=== PATIENT | male | born 1965 | race Caucasian/White ===

== ENCOUNTER 2023-12-17 12:26 | Emergency (ER) | payer OTHER ==
[2023-12-17 13:10] LABS: BASOPHILS ABSOLUTE AUTO 0.1 K/mm3 (0.0-0.2); BASOPHILS PERCENT AUTO 0.6 % (0.0-1.0); EOSINOPHILS ABSOLUTE AUTO 0.1 K/mm3 (0.0-0.4); EOSINOPHILS PERCENT AUTO 1.7 % (0.0-6.0); HEMATOCRIT 46.8 % (42.0-52.0); HEMOGLOBIN 16.1 gm/dl (14.0-18.0); IMMATURE GRAN ABSOLUTE AUTO 0.04 K/mm3 (0.00-0.05); IMMATURE GRAN PERCENT AUTO 0.5 % (0.0-0.4); LYMPHOCYTES ABSOLUTE AUTO 1.8 K/mm3 (1.0-4.8); LYMPHOCYTES PERCENT AUTO 21.6 % (24.0-44.0); MEAN CORPUSCULAR HEMOGLOBIN 28.4 pg (28.0-32.0); MEAN CORPUSCULAR HGB CONC 34.4 g/dl (32.0-36.0); MEAN CORPUSCULAR VOLUME 82.7 fl (83.0-99.0); MEAN PLATELET VOLUME 10.4 fl (9.4-12.4); MONOCYTES ABSOLUTE AUTO 0.6 K/mm3 (0.0-0.8); MONOCYTES PERCENT AUTO 6.7 % (0.0-8.0); NEUTROPHILS ABSOLUTE AUTO 5.8 K/mm3 (1.8-7.7); NEUTROPHILS PERCENT AUTO 68.9 % (41.0-71.0); PLATELET COUNT,PLT 300 K/mm3 (150-400); RED BLOOD CELL COUNT 5.66 M/mm3 (4.52-5.90); WHITE BLOOD CELL COUNT,WBC 8.47 K/mm3 (3.9-11.3)
[2023-12-17] MEDS: Insulin Regular, Human 100 Units/ML 3 ML Vial IV ONE (13:24)
[2023-12-17] MEDS: Sodium Chloride 0.9% 1,000 ML IV ONE (13:24)
[2023-12-17] MEDS: hydrALAZINE 20 MG/ML SDV IVPUSH ONE ×2 (13:25→16:25)
[2023-12-17 13:41] LABS: PROTHROMBIN TIME 9.8 SECONDS (9.7-12.0)
[2023-12-17 13:45] LABS: A/G RATIO 0.7 (1-2); ALBUMIN 2.7 g/dl (3.4-5.0); ANION GAP 10.1 (5-15); BILIRUBIN TOTAL 0.3 mg/dL (0.2-1.0); BUN/CREATININE RATIO 18.7 (14-18); CALCIUM 9.6 mg/dL (8.5-10.1); CREATININE 1.5 mg/dL (0.7-1.3); EST CRCL DRUG DOSING (CG) 42.47 mL/min; MAGNESIUM 1.6 mg/dL (1.8-2.4); PHOSPHORUS 4.1 mg/dL (2.6-4.7); POTASSIUM,K 5.1 mEq/L (3.5-5.1); PROTEIN TOTAL,TP 6.7 g/dl (6.4-8.2)
[2023-12-17 14:06] LABS: INR < 0.93
[2023-12-17 14:40] LABS: APPEARANCE,URINE CLEAR (Clear); BILIRUBIN,URINE NEGATIVE (Negative); COLOR,URINE YELLOW (Yellow); GLUCOSE,URINE 2+ (Negative); KETONES,URINE NEGATIVE (Negative); LEUKOCYTE ESTERASE,URINE NEGATIVE (Negative); NITRITE,URINE NEGATIVE (Negative); OCCULT BLOOD,URINE 2+ (Negative); PROTEIN,URINE 3+ (Negative); UROBILINOGEN,URINE 0.2 (0.2-1.0)
[2023-12-17 14:49] LABS: AMPHETAMINES SCREEN, URINE NEGATIVE (CUTOFF=500); BARBITURATE SCREEN,URINE NEGATIVE (CUTOFF=200); BENZODIAZEPINES SCREEN,URINE NEGATIVE (CUTOFF=150); METHADONE SCREEN, URINE NEGATIVE (CUT0FF=200); METHAMPHETAMINES SCREEN, URINE NEGATIVE (CUTOFF=500); OXYCODONE SCREEN,URINE NEGATIVE (CUT0FF=100); THC SCREEN,URINE 20 NG/ML NEGATIVE (CUTOFF=50)
[2023-12-17 14:50] LABS: BUPRENORPHINE SCREEN,URINE NEGATIVE (CUTOFF=10)
[2023-12-17 14:58] LABS: BACTERIA,URINE FEW /hpf (FEW); MUCUS,URINE FEW /hpf (FEW); SQUAMOUS EPITHELIAL CELLS,UR 0-5 /hpf (0-5); WBC,URINE 0-5 /hpf (0-5)
[2023-12-17] MEDS: LORazepam 2 MG/ML SDV IVPUSH ONE (15:43)
[2023-12-17] MEDS: Aspirin 81 MG Tab.Chew PO ONE (18:13)
[2023-12-17] MEDS: niCARdipine HCl 25 MG in Sodium Chloride 0.9% 250 ML IV SCH (18:33)
== END 2023-12-17 18:52 ==
LOC: JD.ED 12:26
DX: I63.9 Cerebral infarction, unspecified (principal); E10.9 Type 1 diabetes mellitus without complications; I10 Essential (primary) hypertension; I25.2 Old myocardial infarction; Z95.0 Presence of cardiac pacemaker; Z95.1 Presence of aortocoronary bypass graft; Z86.73 Personal history of transient ischemic attack (TIA), and cerebral infarction without residual deficits; Z91.010 Allergy to peanuts
CPT/HCPCS: 36415; 70450; 70551; 80053; 80306; 80307; 81001; 82947; 83735; 84100; 84484; 85025; 85610; 93005; 96361; 96365; 96375; 99285; A9270; J0360; J1815; J2060; J7030; J7050; 93010; J3490